=== PATIENT | female | born 1965 | race Caucasian/White ===

== ENCOUNTER 2017-05-11 03:53 | Emergency (ER) | payer BC ==
[~2017-05-11] VITALS: Ht 162.6 cm; Wt 89.8 kg
[2017-05-11 04:33] LABS: Urine RBC None Seen /hpf (0 - 4)
[2017-05-11 04:51] LABS: Urine Bilirubin Negative (Negative); Urine Blood Negative /uL (Negative); Urine Color Yellow (Yellow); Urine Glucose Normal (Normal); Urine Ketone Negative (Negative); Urine Nitrite Negative (Negative); Urine Squamous Epithelial Cell FEW /hpf (<5); Urine Urobilinogen Normal (Negative); Urine pH 5.5 (5.0-8.0)
[2017-05-11 05:01] VITALS: BP 127/84
== END 2017-05-11 05:54 | disposition home or self-care (01) ==
LOC: ER 04:04
DX: F41.9 Anxiety disorder, unspecified (principal); I10 Essential (primary) hypertension
CPT/HCPCS: 81001; 93005

== ENCOUNTER 2017-10-11 02:30 | Emergency (ER) | payer BC ==
[~2017-10-11] VITALS: Ht 162.6 cm; Wt 77.1 kg
[2017-10-11 03:59] LABS: Basophils # (auto) 0.1 uL; Basophils % (auto) 0.9 % (0.0-2.0); Eosinophils # (auto) 0.3 uL; Eosinophils % (auto) 3.6 % (0.0-7.0); Hematocrit 42.4 % (36.0-46.0); Hemoglobin 14.4 g/dL (12.2-16.2); Lymphocytes # (auto) 0.9 uL; Lymphocytes % (auto) 9.3 % (10.0-50.0); Mean Corpuscular Hemoglobin 29.9 pg (28.0-32.0); Monocytes # (auto) 0.6 uL; Monocytes % (auto) 6.1 % (0.0-12.0); Neutrophils # (auto) 7.8 uL; Neutrophils % (auto) 80.1 % (37.0-80.0); Platelet Count (auto) 341 10^3/uL (140-450); Red Blood Cells 4.82 10^6/uL (4.0-5.20); White Blood Cell 9.7 10^3/uL (4.4-10.8)
[2017-10-11 04:04] LABS: Alanine Aminotransferase 15 U/L (13-56); Albumin 3.3 g/dL (3.4-5.0); Amylase 42 U/L (25-115); Anion Gap 5 (5-15); Aspartate Aminotransferase 15 U/L (15-37); BUN/Creatinine Ratio 11.1; Blood Urea Nitrogen 10 mg/dL (7-18); Calcium 8.9 mg/dL (8.5-10.1); Carbon Dioxide 26 mmol/L (21-32); Chloride 110 mmol/L (98-107); GFR African American 85 mL/min; GFR Non-African American 70 mL/min; Glucose 100 mg/dL (74-106); Lipase 106 U/L (73-393); Potassium 4.5 mmol/L (3.5-5.1); Sodium 141 mmol/L (136-145)
[2017-10-11 04:10] LABS: Alkaline Phosphatase 97 U/L (45-117); Bilirubin, Total 0.5 mg/dL (0.2-1.0); Total Protein 7.3 g/dL (6.4-8.2)
[2017-10-11 07:44] VITALS: BP 113/67
[2017-10-11] MEDS ORDERED: KETOROLAC TROMETH 60MG/2ML VIAL IM ONE (08:00)
[2017-10-11] MEDS ORDERED: PANTOPRAZOLE 40 MG TAB PO ONE (08:15)
== END 2017-10-11 08:49 | disposition home or self-care (01) ==
LOC: ER 02:35
DX: N20.0 Calculus of kidney (principal); R53.1 Weakness; Z98.51 Tubal ligation status; Z88.6 Allergy status to analgesic agent
CPT/HCPCS: 36415; 74176; 80053; 81025; 82150; 83690; 84484; 85025; 93005; 96372; 99285; J1885

== ENCOUNTER 2018-01-09 05:09 | Inpatient (IN) | payer BC ==
[~2018-01-09] VITALS: Ht 162.6 cm; Wt 88.6 kg
[2018-01-09 05:54] LABS: Urine Bacteria FEW /hpf (None Seen); Urine Blood Negative /uL (Negative); Urine Specific Gravity 1.012 (1.001-1.035); Urine WBC 6 /hpf (0 - 5)
[2018-01-09 07:36] LABS: Basophils # (auto) 0.1 uL; Eosinophils # (auto) 0.2 uL; Eosinophils % (auto) 2.1 % (0.0-7.0); Hematocrit 45.6 % (36.0-46.0); Hemoglobin 14.5 g/dL (12.2-16.2); Lymphocytes # (auto) 1.3 uL; Lymphocytes % (auto) 13.5 % (10.0-50.0); Mean Corpuscular Hemoglobin 29.7 pg (28.0-32.0); Mean Corpuscular Hgb Conc. 31.7 g/dL (32.0-36.0); Mean Corpuscular Volume 93.9 fL (80.0-100.0); Monocytes # (auto) 0.5 uL; Monocytes % (auto) 5.4 % (0.0-12.0); Neutrophils # (auto) 7.3 uL; Nucleated Red Blood Cells % 0.1 %; Platelet Count (auto) 362 10^3/uL (140-450); Red Blood Cells 4.86 10^6/uL (4.0-5.20); Red Cell Distribution Width 15.1 % (11.8-14.3); White Blood Cell 9.3 10^3/uL (4.4-10.8)
[2018-01-09 07:45] LABS: INR 0.96 (0.9-1.15); Partial Thromboplastin Time 29.2 sec (23.78-33.04); Prothrombin Time 10.3 sec (9.27-12.13)
[2018-01-09 07:47] LABS: Alanine Aminotransferase 16 U/L (13-56); Albumin 3.5 g/dL (3.4-5.0); Amylase 37 U/L (25-115); Anion Gap 8 (5-15); Aspartate Aminotransferase 14 U/L (15-37); BUN/Creatinine Ratio 11.5; Blood Urea Nitrogen 11 mg/dL (7-18); Calcium 8.7 mg/dL (8.5-10.1); Carbon Dioxide 25 mmol/L (21-32); Chloride 108 mmol/L (98-107); GFR African American 79 mL/min; GFR Non-African American 65 mL/min; Glucose 92 mg/dL (74-106); Lipase 110 U/L (73-393); Magnesium 2.3 mg/dL (1.6-2.6); Potassium 4.5 mmol/L (3.5-5.1); Sodium 141 mmol/L (136-145)
[2018-01-09 07:52] LABS: Alkaline Phosphatase 111 U/L (45-117); Bilirubin, Total 0.3 mg/dL (0.2-1.0); Total Protein 7.8 g/dL (6.4-8.2)
[2018-01-09] MEDS ORDERED: SODIUM CHLORIDE 0.9% 1,000 ML IV ONE ×2 (07:56)
[2018-01-09] MEDS ORDERED: KETOROLAC TROMETH 30 MG/ML 1ML VIAL IV ONE (08:00)
[2018-01-09] MEDS ORDERED: ONDANSETRON HCL 4 MG/2 ML VIAL ONE (10:04)
[2018-01-09] MEDS ORDERED: ONDANSETRON HCL 4 MG/2 ML VIAL IV ONE (10:15)
[2018-01-09] MEDS ORDERED: cefTRIAXone 1GM/10ml IVPUSH 10 ML IV ONE (10:15)
[2018-01-09] MEDS ORDERED: ONDANSETRON HCL 4 MG/2 ML VIAL IV PRN (10:45)
[2018-01-09] MEDS ORDERED: NITROGLYCERIN 0.4 MG SL TAB SL PRN (10:45)
[2018-01-09] MEDS ORDERED: MORPHINE SULF INJ 2 MG/ML SYRINGE 1ML IV PRN ×2 (10:45)
[2018-01-09] MEDS: SODIUM CHLORIDE 0.9% 1,000 ML IV SCH ×2 (11:37→23:20)
[2018-01-09] MEDS: cefTRIAXone 1GM/10ml IVPUSH 10 ML IV SCH (11:37)
[2018-01-09] MEDS ORDERED: ACETAMINOPHEN 325 MG TAB PO PRN (22:45)
[2018-01-09 23:00] VITALS: BP 128/87
[2018-01-10 05:00] VITALS: BP 115/76
[2018-01-10 06:54] LABS: Basophils # (auto) 0.1 uL; Basophils % (auto) 1.2 % (0.0-2.0); Eosinophils # (auto) 0.3 uL; Eosinophils % (auto) 4.9 % (0.0-7.0); Hematocrit 39.5 % (36.0-46.0); Hemoglobin 12.8 g/dL (12.2-16.2); Lymphocytes # (auto) 1.6 uL; Lymphocytes % (auto) 25.1 % (10.0-50.0); Mean Corpuscular Hemoglobin 28.9 pg (28.0-32.0); Mean Corpuscular Hgb Conc. 32.3 g/dL (32.0-36.0); Mean Corpuscular Volume 89.7 fL (80.0-100.0); Monocytes # (auto) 0.5 uL; Monocytes % (auto) 7.3 % (0.0-12.0); Neutrophils # (auto) 3.8 uL; Neutrophils % (auto) 61.5 % (37.0-80.0); Nucleated Red Blood Cells % 0.1 %; Platelet Count (auto) 310 10^3/uL (140-450); Red Blood Cells 4.41 10^6/uL (4.0-5.20); Red Cell Distribution Width 14.2 % (11.8-14.3); White Blood Cell 6.2 10^3/uL (4.4-10.8)
[2018-01-10 07:15] LABS: Calcium 7.7 mg/dL (8.5-10.1); Potassium 3.9 mmol/L (3.5-5.1)
[2018-01-10 09:00] VITALS: BP 119/70
[2018-01-10] MEDS: cefTRIAXone 1GM/10ml IVPUSH 10 ML IV SCH (10:07)
[2018-01-10] MEDS: SODIUM CHLORIDE 0.9% 1,000 ML IV SCH (11:45)
[2018-01-10] MEDS ORDERED: FUROSEMIDE 40 MG/4 ML VIAL ONE (12:22)
[2018-01-10 13:00] VITALS: BP 131/82
[2018-01-10] MEDS ORDERED: KETOROLAC TROMETH 30 MG/ML 1ML VIAL IV PRN (15:30)
[2018-01-10 16:53] VITALS: BP 117/67
== END 2018-01-10 18:20 | disposition home or self-care (01) | DRG 690 ==
LOC: ER 05:09 → TELE 05:10 → TELE-WESTW 22:45
PROVIDERS: ADMIT Internal Medicine; ATTEND Internal Medicine
DX: N13.6 Pyonephrosis (principal); K44.9 Diaphragmatic hernia without obstruction or gangrene; Z87.442 Personal history of urinary calculi; Z88.5 Allergy status to narcotic agent
CPT/HCPCS: 36415; 71045; 74176; 78707; 80048; 80053; 81001; 81025; 82150; 83690; 83735; 84484; 85025; 85610; 85730; 87086; 93005; 96361; 96374; 96375; J0696; J1885; J2405

== ENCOUNTER 2018-06-22 04:28 | Emergency (ER) | payer BC ==
[~2018-06-22] VITALS: Ht 162.6 cm; Wt 81.6 kg
[2018-06-22 04:45] VITALS: BP 147/97
== END 2018-06-22 08:55 | disposition left against medical advice (07) ==
LOC: ER 04:39
DX: R42 Dizziness and giddiness (principal); R11.2 Nausea with vomiting, unspecified; Z98.51 Tubal ligation status; Z87.442 Personal history of urinary calculi; Z88.6 Allergy status to analgesic agent
CPT/HCPCS: 93005